=== PATIENT | female | born 1955 | race Caucasian/White ===

== ENCOUNTER 2018-10-28 04:51 | Emergency (ER) | payer MEDICARE, OTHER ==
[~2018-10-28] VITALS: Ht 177.8 cm; Wt 74.8 kg
--- OUTSIDE RECORDS SUMMARY | 2018-10-28 04:53 | XMS REPORT | Clinical Summary ---
Author Author [facility] Address Unknown Phone Unavailable Care Team Providers Care Carbonizer Name Role Phone Dougie Seaman MD PCP Allergies No Known Allergies Medications Not on file Active Problems Not on file Encounters Care Team Description Date Type Specialty Jennifer Tiwari MD Brain tumor (HCC); Confusion 08/16/2018 Hospital Radiology Encounter Jennifer Tiwari MD Brain tumor (HCC) (Primary Dx); Confusion 08/01/2018 Outside Orders Radiology after 10/27/2017 Social History Date Tobacco Use Types Packs/Day Years Used Never Assessed Sex Assigned at Date Recorded Not on file Industry Job Start Date Occupation Not on file Not on file Not on file Travel End Travel History Travel Start No recent travel history available. Last Filed Vital Signs Not on file Plan of Treatment Not on file Procedures Comments Procedure Name Priority Date/Time Associated Diagnosis MR BRAIN WITHOUT & WITH Routine 08/16/2018 Brain tumor (HCC) IV CONTRAST 9:17 AM ROBOTICS TECHNOLOGIST Confusion POCT-CREATININE Routine 08/16/2018 8:32 AM ROBOTICS TECHNOLOGIST after 10/27/2017 Results * MR brain without & with IV contrast (08/16/2018 9:17 AM ROBOTICS TECHNOLOGIST) Specimen Narrative Performed At FINAL REPORT [facility] MRI Brain with and without contrast Clinical History: BRAIN TUMOR, CONFUSION Technique: MRI of the brain utilizing axial T1, T2, FLAIR, GRE, DWI, sagittal T1; and postgadolinium axial, sagittal, and coronal T1-weighted images. Comparisons: Outside MRI brain 01/13/2005 Findings: A dural based enhancing mass centered along the anterior falx measures 1.4 cm AP x 1.3 cm TV, previously 1.3 cm x 1.1 cm. A second dural based mass in the right superior frontal region measures 1.3 cm along its base by 0.9 cm in thickness, previously 1.1 cm x 0.7 cm. The latter lesion demonstrates gradient echo signal dephasing compatible with calcification. There is no significant appearing vasogenic edema around either of these lesions. There is no evidence of acute infarct or hemorrhage. There is a new but chronic right posterior cerebellar infarct. There is mild to moderate periventricular and subcortical white matter T2 hyperintensity, which is nonspecific but compatible with chronic microvascular ischemic change. There is mild generalized parenchymal volume loss without hydrocephalus or midline shift. 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 There are no extra-axial fluid collections. The craniocervical junction is preserved. The major intracranial flow-voids appear patent. 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 There is no significant appearing vasogenic edema in the adjacent brain parenchyma. Chronic right cerebellar infarct. Signed: Lazaro Poon MD Report Verified Date/Time:08/16/2018 10:13:28 Reading Location: [facility] C013V Neuro Reading Room Procedure Note Interface, External Ris In - 08/16/2018 10:15 AM ROBOTICS TECHNOLOGIST FINAL REPORT MRI Brain with and without contrast Clinical History: BRAIN TUMOR, CONFUSION Technique: MRI of the brain utilizing axial T1, T2, FLAIR, GRE, DWI, sagittal T1; and postgadolinium axial, sagittal, and coronal T1-weighted images. Comparisons: Outside MRI brain 01/13/2005 Findings: A dural based enhancing mass centered along the anterior falx measures 1.4 cm AP x 1.3 cm TV, previously 1.3 cm x 1.1 cm. A second dural based mass in the right superior frontal region measures 1.3 cm along its base by 0.9 cm in thickness, previously 1.1 cm x 0.7 cm. The latter lesion demonstrates gradient echo signal dephasing compatible with calcification. There is no significant appearing vasogenic edema around either of these lesions. There is no evidence of acute infarct or hemorrhage. There is a new but chronic right posterior cerebellar infarct. There is mild to moderate periventricular and subcortical white matter T2 hyperintensity, which is nonspecific but compatible with chronic microvascular ischemic change. There is mild generalized parenchymal volume loss without hydrocephalus or midline shift. 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 There are no extra-axial fluid collections. The craniocervical junction is preserved. The major intracranial flow-voids appear patent. IMPRESSION: Since 2005, the right superior frontal and anterior falcine meningiomas have both slightly increased in size. There is no significant appearing vasogenic edema in the adjacent brain parenchyma. Chronic right cerebellar infarct. Signed: Lazaro Poon MD Report Verified Date/Time: 08/16/2018 10:13:28 Reading Location: [facility] C013 Neuro Reading Room Performing Organization Address City/State/Zipcode Phone Number GE RIS * POC-Creatinine (08/16/2018 8:32 AM ROBOTICS TECHNOLOGIST) POC-Creatinine 0.7Comment: TESTED AT [facility]-KG 0.6 - 1.3 mg/dL [facility] [address] [place] [address] POC-EGFR 84 mL/min/1.73M2 [facility] Specimen Blood Performing Organization Address City/State/Zipcode Phone Number [facility] [address] [place], [place] [phone] [facility] after 10/27/2017 Insurance Payer Benefit Subscriber ID Type Phone Address Plan / Group [employer] xxxxxxxxxxx MEDICARE ADV xxxxxxxxx Other Govt ([facility] [place], [facility], etc.)
--- OUTSIDE RECORDS SUMMARY | 2018-10-28 04:53 | XMS REPORT ---
Author Author [facility] Address Unknown Phone Unavailable Care Team Providers Care Dermatologist And Dermatopathologist Name Role Phone DEJA FREEDMAN Unavailable Unavailable Problems This patient has no known problems. Allergies, Adverse Reactions, Alerts This patient has no known allergies or adverse reactions. Medications This patient has no known medications. Results Test Description Test Time Test Comments Text Results Atomic Results Result Comments MR, BRAIN, WITH 2018-08-16 10:13:00 FINAL REPORT MRI Brain with and without [...] parenchyma. Chronic right cerebellar infarct. Signed: Lazaro Zaragoza MDReport Verified Date/Time: 08/16/2018 10:13:28 Reading Location: [facility] C013V Neuro Reading Room -CREATININE 2018-08-16 08:51:00 POC-CREATININE (YU) (test poqo=[id number]) 0.7 mg/dL 0.6-1.3 [address]ED [address] [address] POC-EGFR (YU) (test hgai=[id number]) 84 mL/min/1.73M2
[2018-10-28] MEDS ORDERED: PANTOPRAZOLE 40 MG 10ML VIAL IV STA (04:54)
[2018-10-28] MEDS ORDERED: LIDOCAINE VISC 2% SOLN 15 ML UDC PO ONE (05:00)
[2018-10-28] MEDS ORDERED: BELLADONNA ALK/PHENOBARBITAL 5 ML UDC PO ONE (05:00)
[2018-10-28] MEDS ORDERED: MAGNESIUM/ALUMINUM/SIMETHICONE 30 ML UDC PO ONE (05:00)
[2018-10-28] MEDS ORDERED: NIACIN500 M2 PO (05:01)
[2018-10-28] MEDS ORDERED: LOSARTAN POTAS100 MG PO (05:01)
[2018-10-28] MEDS ORDERED: NITROGLYCERIN0.4 MG SL (05:01)
[2018-10-28] MEDS ORDERED: PLAVIX75 MG PO (05:01)
[2018-10-28] MEDS ORDERED: AMLODIPINE BESYL5 MG PO (05:01)
[2018-10-28] MEDS ORDERED: ASPIR 8181 MG PO (05:01)
[2018-10-28] MEDS ORDERED: METOPROLOL SUCC50 MG PO (05:01)
[2018-10-28] MEDS ORDERED: BELLADONNA ALK/PHENOBARBITAL 5 ML UDC ONE (05:06)
[2018-10-28 05:11] LABS: BASOPHILS % 0.9 % (0.0-1.0); EOSINOPHILS # (AUTO) 0.1 (0.0-0.4); EOSINOPHILS % 2.3 % (0.0-6.0); HEMATOCRIT 39.4 % (34.2-44.1); HEMOGLOBIN 14.1 g/dL (12.0-16.0); LYMPHOCYTES # (AUTO) 1.8 (1.0-3.2); LYMPHOCYTES % 40.5 % (18.0-39.1); MEAN CORPUSCULAR HGB CONC 35.8 g/dL (31-35); MEAN CORPUSCULAR VOLUME 89.5 fL (81-99); MONOCYTES # (AUTO) 0.5 (0.2-0.8); MONOCYTES % 10.6 % (4.4-11.3); NEUTROPHILS % 45.5 % (38.7-80.0); PLATELET COUNT 171 x10e3/uL (140-360); RED CELL DISTRIBUTION WIDTH 12.8 % (11.7-14.4)
[2018-10-28 05:34] LABS: ALANINE AMINOTRANSFERASE 20 IU/L (0-55); ALBUMIN 4.2 g/dL (3.5-5.0); ALBUMIN/GLOBULIN RATIO 1.3 (0.8-2.0); ALKALINE PHOSPHATASE 94 IU/L (40-150); AMYLASE 61 U/L (25-125); ANION GAP 16.4 mmol/L (8-16); BLOOD UREA NITROGEN 21 mg/dL (7-26); BUN/CREATININE RATIO 25 (6-25); CALCIUM 10.6 mg/dL (8.4-10.2); CARBON DIOXIDE 24 mmol/L (22-29); CHLORIDE 105 mmol/L (98-107); CREATINE KINASE 90 IU/L (29-168); CREATININE, SERUM 0.84 mg/dL (0.57-1.11); EST GLOMERULAR FILTRATION RATE > 60 ML/MIN (60-); GLUCOSE 99 mg/dL (74-118); LIPASE 52 U/L (8-78); POTASSIUM 3.4 mmol/L (3.5-5.1); SODIUM 142 mmol/L (136-145)
--- NOTE | 2018-10-28 05:39 | NUR ---
PT REPORTS SX RESOLVED AFTER MEDICATIONS, DR HE AWARE
[2018-10-28 06:01] LABS: BILIRUBIN,URINE NEGATIVE (NEGATIVE); CLARITY,URINE SL CLOUDY (CLEAR); COLOR,URINE YELLOW (YELLOW); KETONES,URINE NEGATIVE (NEGATIVE); LEUKOCYTE ESTERASE ,URINE NEGATIVE (NEGATIVE); NITRITE,URINE NEGATIVE (NEGATIVE); PROTEIN,URINE DIPSTICK NEGATIVE (NEGATIVE); URINE UROBILINOGEN 0.2 mg/dL (0.2 - 1)
[2018-10-28 06:10] LABS: AMORPHOUS SEDIMENT,URINE MANY (FEW); EPITHELIAL CELLS,URINE FEW /LPF; RBC,URINE 0-5 /HPF (0-5); WBC,URINE (MAN) 0-5 /HPF (0-5)
[2018-10-28 06:27] VITALS: BP 149/68
--- NOTE | 2018-10-28 06:32 | Diagnostic Imaging Report ---
Examination: Single AP view of the chest. COMPARISON: Rib series with PA chest 07/06/2011 INDICATION: Chest pain IMPRESSION: 1. Lines and Tubes: None 2. Lungs are grossly clear. No consolidation or effusion. 3. Cardiomediastinal silhouette is normal. Pulmonary vasculature is normal. 4. No acute bony abnormalities. Signed by: Dr. Casey Lee M.D. on 10/28/2018 6:29 AM
== END 2018-10-28 06:33 | disposition home or self-care (01) ==
LOC: ER 04:51
DX: R07.89 Other chest pain (principal); R10.13 Epigastric pain; K21.9 Gastro-esophageal reflux disease without esophagitis; K29.00 Acute gastritis without bleeding; I10 Essential (primary) hypertension; E78.00 Pure hypercholesterolemia, unspecified; I25.10 Atherosclerotic heart disease of native coronary artery without angina pectoris; Z95.5 Presence of coronary angioplasty implant and graft
CPT/HCPCS: 36415; 71045; 80053; 81001; 82150; 82550; 82553; 83690; 84484; 85025; 93005; 96374; 99284; C9113

== ENCOUNTER 2024-09-24 14:50 | Emergency (ER) | payer MEDICARE, OTHER ==
[~2024-09-24] VITALS: Ht 177.8 cm; Wt 74.8 kg
[~2024-09-24 14:50] MED LIST: AMLODIPINE BESYL5 MG PO; ASPIR 8181 MG PO; LOSARTAN POTAS100 MG PO; METOPROLOL SUCC50 MG PO; NIACIN500 M2 PO; NITROGLYCERIN0.4 MG SL; PLAVIX75 MG PO
[2024-09-24 15:02] VITALS: RESP 18; TEMP 98.4
[2024-09-24] MEDS ORDERED: TETANUS/DIPHTHERIA TOX ADULT 0.5 ML SYR ONE (15:29)
[2024-09-24] MEDS: TETANUS/DIPHTHERIA TOX ADULT 0.5 ML SYR IM ONE (15:40)
[2024-09-24] MEDS: LIDOCAINE 2% /EPINEPHRINE 20 ML SDV INJ ONE (17:19)
[2024-09-24] MEDS ORDERED: LIDOCAINE 2%/ EPINEPHRINE 20ML MDV ONE (17:19)
[2024-09-24] MEDS ORDERED: CEPHALEXIN500 MG PO (17:45)
[2024-09-24 17:47] VITALS: PULSE 62; O2SAT 100
[2024-09-24] MEDS ORDERED: ULTRAM 50MG50 MG PO (18:02)
== END 2024-09-24 18:06 | disposition home or self-care (01) ==
LOC: ER 15:09
DX: S61.412A Laceration without foreign body of left hand, initial encounter (principal); W26.8XXA Contact with other sharp object(s), not elsewhere classified, initial encounter; Y93.H3 Activity, building and construction; Y92.89 Other specified places as the place of occurrence of the external cause; I10 Essential (primary) hypertension; E78.5 Hyperlipidemia, unspecified; I25.10 Atherosclerotic heart disease of native coronary artery without angina pectoris; E78.00 Pure hypercholesterolemia, unspecified
CPT/HCPCS: 73130; 90471; 90714; 99284; J2004